=== PATIENT | male | born 1965 | race Caucasian/White ===

== ENCOUNTER 2025-05-11 03:02 | Emergency (ER) | payer MEDICARE ==
[2025-05-11] MEDS ORDERED: SODIUM BICARB 8.4% 50 ML SYR (1 MEQ/ML) ONE (03:04)
[2025-05-11] MEDS ORDERED: EPINEPHrine 10 ML SYRINGE (0.1 MG/ML) ONE (03:04)
[2025-05-11] MEDS ORDERED: DEXTROSE 50% SYRINGE 50 ML IVP ONE (03:04)
--- NOTE | 2025-05-11 03:35 | ED ---
CPR HPI - General Stated Complaint: Cardiac Arrest Time Seen by Provider: 05/11/25 03:33 Source: RN notes reviewed, old records reviewed Mode of arrival: EMS Limitations: altered mental status, physical limitation - History of Present Illness Initial Comments: This is a unknown Yohannes Coates coming in after EMS call for shortness of breath when EMS got to his house patient collapsed became unresponsive and lost pulse. Patient brought to the ER for further evaluation management ACLS protocol per EMS MD Complaint: collapsed during rest (Collapsed and became unresponsive right after EMS arrival secondary to significant dyspnea and shortness of breath) -: unknown Place: home Bystander CPR Performed: No AED Applied by Bystander/Lab Scientist: Yes Shock Advised: No Initial Findings in the Field: alert, agonal, good pulses ROSC in the Field: No Associated Injuries: No Associated Symptoms: shortness of breath Treatments Prior to Arrival: BMV, other airway device, chest compressions, epinephrine mgs # - Related Data Allergies Allergy/AdvReac Type Severity Reaction Status Date / Time Unable to Assess Allergy Verified 05/11/25 08:45 Review of Systems ROS Statement: Those systems with pertinent positive or pertinent negative responses have been documented in the HPI. ROS Other: All systems not noted in ROS Statement are negative. General Exam Limitations: altered mental status, physical limitation General appearance: lethargic, obtunded, in distress Head exam: Present: atraumatic Eye exam: Present: other (Pupils fixed and dilated) ENT exam: Present: normal exam Neck exam: Present: normal inspection Respiratory exam: Present: other (Apnea) Cardiovascular Exam: Present: other (No heart sounds) Rectal exam: Present: deferred Skin exam: Present: cyanosis, pallor, mottled Course Vital Signs 05/11/25 03:56 Temperature 97 F L Pulse Rate 0 L Respiratory 0 L Rate O2 Sat by Pulse 0 L Oximetry - Reevaluation(s) Reevaluation #1: 05/11/25 04:07 Medical records reviewed Reevaluation #2: 05/11/25 04:07 Patient is pronounced at 0320 Reevaluation #3: 05/11/25 04:07 Spoke with medical transcription radiology body released Reevaluation #4: Was pt. sent in by a medical professional or institution (, PA, PRODUCTION STAGE MANAGER, urgent care, hospital, or intermediate...) When possible be specific @ -no Did you speak to anyone other than the patient for history (EMS, parent, family, police, friend...)? What history was obtained from this source @ -no Did you review nursing and triage notes (agree or disagree)? Why? @ -agree Are old charts reviewed (outside hosp., previous admission, EMS record, old EKG, old radiological studies, urgent care reports/EKG's, intermediate records)? Report findings @ -yes Differential Diagnosis (chest pain, altered mental status, abdominal pain women, abdominal pain men, vaginal bleeding, weakness, fever, dyspnea, syncope, headache, dizziness, GI bleed, back pain, seizure, CVA, palpatations, mental health, musculoskeletal)? @ -prior EKG interpreted by me (3pts min.). @ -no X-rays interpreted by me (1pt min.). @ -no CT interpreted by me (1pt min.). @ -no U/S interpreted by me (1pt. min.). @ -no What testing was considered but not performed or refused? (CT, X-rays, U/S, labs)? Why? @ -none What meds were considered but not given or refused? Why? @ -none Did you discuss the management of the patient with other professionals (professionals i.e. , PA, PRODUCTION STAGE MANAGER, lab, RT, psych nurse, social media community manager, foxing painter, teacher, humane officer, counseling case manager)? Give summary @ -no Was smoking cessation discussed for >3mins.? @ -no Was critical care preformed (if so, how long)? @ -yes31 Were there social determinants of health that impacted care today? How? (Homelessness, low income, unemployed, alcoholism, drug addiction, transportation, low edu. Level, literacy, decrease access to med. care, usp, rehab)? @ -none Was there de-escalation of care discussed even if they declined (Discuss DNR or withdrawal of care, Hospice)? DNR status @ -no What co-morbidities impacted this encounter? (DM, HTN, Smoking, COPD, CAD, Cancer, CVA, ARF, Chemo, Hep., AIDS, mental health diagnosis, sleep apnea, morbid obesity)? @ -none Was patient admitted / discharged? Hospital course, mention meds given and route, prescriptions, significant lab abnormalities, going to OR and other pertinent info. @ - Patient came in his cardiac arrest, pronounced at 0320, pulseless apneic able to fixed and dilated cardiac standstill on ultrasound Undiagnosed new problem with uncertain prognosis? @ -no Drug Therapy requiring intensive monitoring for toxicity (Heparin, Nitro, Insulin, Cardizem)? @ -no Were any procedures done? @ -no Diagnosis/symptom? @ -Cardiopulmonary arrest Acute, or Chronic, or Acute on Chronic? @ -Acute Uncomplicated (without systemic symptoms) or Complicated (systemic symptoms)? @ -Complicated Side effects of treatment? @ -no Exacerbation, Progression, or Severe Exacerbation? @ -exacerbation Poses a threat to life or bodily function? How? (Chest pain, [place], [place], pneumonia, PE, COPD, DKA, ARF, appy, cholecystitis, CVA, Diverticulitis, Homicidal, Suicidal, threat to staff... and all critical care pts) @ -yes cardiac arrest - Consultations Consultation #1: Spoke with medical transcription radiology Procedures - Intubation Laryngoscope: Keny Size: 4 ET Tube Size: 8 ET Tube Uncuffed: Yes Tube Secured Location: teeth Tube Placement Confirmation: visualized tube passing through cords, equal breath sounds bilaterally Patient Tolerated Procedure: well Intubation Complications: none Medical Decision Making - Medical Decision Making Patient came in his cardiac arrest, pronounced at 0320, pulseless apneic able to fixed and dilated cardiac standstill on ultrasound Critical Care Time Critical Care Time: Yes Total Critical Care Time: 31 Disposition Clinical Impression: Cardiac arrest Disposition: Condition: Critical Is patient prescribed a controlled substance at d/c from ED?: No Referrals: None,Stated [Primary Care Provider] - 1-2 days Time of Disposition: 04:00 Preliminary Cause of : CardioPulmonary Arrest
[2025-05-11 04:01] VITALS: PULSE 0; RESP 0; TEMP 97
== END 2025-05-11 04:55 | disposition expired ==
LOC: MERGE 03:02 → EC 03:02 → EDBD 03:02 → EC 04:55
DX: I46.9 Cardiac arrest, cause unspecified (principal)
CPT/HCPCS: 92950; 99291; 31500; J0171